=== PATIENT | female | born 1965 | race Caucasian/White ===

== ENCOUNTER → 2017-06-27 | Outpatient (CLI) | payer BC ==
[~2017-06-27] MED LIST: ACET1TAB84 PO; ALBU1AER9 INH; MUCINEX; SYMIN/8045 INH
--- NOTE | 2017-06-27 14:36 | DIAGNOSTIC IMAGING REPORT ---
R HAND MIN 3 VIEWS ROUTINE CLINICAL HISTORY: 51 years-old Female presenting with PAIN IN RIGHT HAND, fourth finger pain. TECHNIQUE: Frontal, oblique, and lateral views of the right hand were obtained. COMPARISON: None. FINDINGS: Avulsion fracture fragment at the dorsal base of the middle phalanx of the fourth finger. The fracture fragment is displaced 2 to 3 mm from the donor site. No evidence of a boutonniere deformity. No malalignment at the proximal interphalangeal joint. No other fracture is evident. No significant soft tissue abnormality. IMPRESSION: Avulsion fracture at the dorsal base of the middle phalanx of the fourth finger, which suggests injury of the middle slip the extensor tendon. Electronically signed by: Gilberto Marin M.D. 06/27/2017 2:35 PM Dictated Date/Time: 06/27/2017 2:29 PM
== END | disposition home or self-care (01) ==
LOC: C.RADBC 13:57
PROVIDERS: ATTEND Family Medicine
DX: M79.641 Pain in right hand (principal)

== ENCOUNTER → 2017-07-02 | Outpatient (CLI) | payer BC ==
--- NOTE | 2017-07-02 15:01 | MAMMOGRAPHY REPORT ---
BILATERAL DIGITAL SCREENING MAMMOGRAM TOMOSYNTHESIS WITH CAD: 07/02/2017 CLINICAL HISTORY: Routine screening. Patient has no complaints. TECHNIQUE: Breast tomosynthesis in addition to standard 2D mammography was performed. Current study was also evaluated with a Computer Aided Detection (CAD) system. COMPARISON: Comparison is made to exams dated: 07/08/2015 mammogram, 06/29/2016 mammogram, 06/23/2015 mammogram, 06/23/2014 ultrasound, 06/23/2014 mammogram, and 06/11/2014 mammogram - [facility]. BREAST COMPOSITION: There are scattered areas of fibroglandular density in both breasts. FINDINGS: There is a possible area of architectural distortion in the superior posterior right breas t, projecting over the pectoralis muscle on the MLO view (right MLO tomosynthesis slices 1819/110), bthought to project laterally based on the tomosynthesis localizer bar. Additional spot compression tomosynthesis, exaggerated lateral CC tomosynthesis views and possible ultrasound are recommended. There is evidence of prior surgery in both breasts. Stable asymmetries in the medial aspect of each breast likely related to prior surgery. No other suspicious mass, architectural distortion or cluste r of microcalcifications is seen. IMPRESSION: ACR BI-RADS CATEGORY 0: INCOMPLETE EVALUATION: NEED ADDITIONAL IMAGING EVALUATION The possible area of architectural distortion in the superior posterior right breast needs additional evaluation. The patient will be called to schedule an appointment. Approximately 10% of breast cancers are not detected with mammography. A negative mammographic report should not delay biopsy if a clinically suggestive mass is present. Alyssa Crenshaw M.D. ay/:07/02/2017 08:40:16 Commodities Broker: Sarah OLIVERAR, M, [facility] letter sent: Addl Imaging 0 BI-RADS Code: ACR BI-RADS Category 0: Incomplete Evaluation: Need Additional Imaging Evaluation
== END | disposition home or self-care (01) ==
LOC: C.MAMM 08:12
PROVIDERS: ATTEND Obstetrics & Gynecology
DX: Z12.31 Encounter for screening mammogram for malignant neoplasm of breast (principal); R92.8 Other abnormal and inconclusive findings on diagnostic imaging of breast

== ENCOUNTER → 2017-07-06 | Outpatient (CLI) | payer BC ==
--- NOTE | 2017-07-06 15:38 | MAMMOGRAPHY REPORT ---
UNILATERAL RIGHT DIGITAL DIAGNOSTIC MAMMOGRAM TOMOSYNTHESIS: 07/06/2017 CLINICAL HISTORY: Callback from screening mammogram for possible right breast architectural distortio n. TECHNIQUE: Breast tomosynthesis in addition to standard 2D mammography was performed. Spot compress ion right MLO 2-D and tomosynthesis images and 2-D right X CCL view were obtained. COMPARISON: Comparison is made to exams dated: 07/02/2017 mammogram, 06/29/2016 mammogram, 5 mammogram, 06/23/2015 mammogram, 06/23/2014 ultrasound, and 06/23/2014 mammogram - [facility]. BREAST COMPOSITION: There are scattered areas of fibroglandular density in the right breast. FINDINGS: The previously described possible area of architectural distortion seen within the right s uperior posterior breast on the MLO view does not persist on the additional spot compression view. A normal branching vessel is seen in this region, without evidence of a suspicious mass or other suspi cious abnormality seen in this region on the additional images. IMPRESSION: ACR BI-RADS CATEGORY 2: BENIGN The possible right breast architectural distortion does not persist on the additional images. Findin gs are benign and compatible with normal fibroglandular tissue/normal vessels. There is no mammograp hic evidence of malignancy. A 1 year screening mammogram is recommended. The patient has been verbal ly notified of the results. Approximately 10% of breast cancers are not detected with mammography. A negative mammographic report should not delay biopsy if a clinically suggestive mass is present. Indy Gardner M.D. ah/:07/06/2017 13:40:41 Systems Design Engineer: Ora OLIVERA(Sofie)(M), [facility] letter sent: Normal 1/2 BI-RADS Code: ACR BI-RADS Category 2: Benign
== END | disposition home or self-care (01) ==
LOC: C.MAMM 13:15
PROVIDERS: ATTEND Obstetrics & Gynecology
DX: R92.8 Other abnormal and inconclusive findings on diagnostic imaging of breast (principal)

== ENCOUNTER → 2017-08-08 | Outpatient (CLI) | payer BC ==
--- NOTE | 2017-08-08 13:51 | DIAGNOSTIC IMAGING REPORT ---
R ANKLE MIN 3 VIEWS ROUTINE, R FOOT MIN 3 VIEWS ROUTINE HISTORY: 51 years-old Female RIGHT ANKLE PAIN, LAC OF SKIN OF KNEE acute right ankle and right foot pain COMPARISON: None available TECHNIQUE: 3 views of the right foot and 3 views of the right ankle FINDINGS: ANKLE: Acute nondisplaced transverse fracture of the distal fibula is noted at the level of the talar dome. Moderate anterolateral soft tissue swelling. Additionally, there is a small bone fragment measuring 5 mm adjacent to lateral aspect of the anterior process calcaneus seen only on the AP view. Small joint effusion. Moderate plantar calcaneal spur. FOOT: 3 mm bone fragment is noted adjacent to lateral aspect of the anterior calcaneal process suggesting acute avulsion fracture with moderate soft tissue swelling. No additional acute fracture or dislocation. Moderate plantar calcaneal spur. IMPRESSION: 1. Acute nondisplaced transverse fracture of the distal fibula which is at the level of the ankle mortise. 2. Acute avulsion fracture involves the lateral aspect of the anterior process calcaneus. 3. Moderate anterolateral soft tissue swelling with small joint effusion. The above report was generated using voice recognition software. It may contain grammatical, syntax or spelling errors. Electronically signed by: Anup Chaparro M.D. 08/08/2017 1:49 PM Dictated Date/Time: 08/08/2017 1:46 PM
== END | disposition home or self-care (01) ==
LOC: C.RAD 13:17
PROVIDERS: ATTEND Nurse Practitioner
DX: M25.571 Pain in right ankle and joints of right foot (principal); M79.671 Pain in right foot; S81.019A Laceration without foreign body, unspecified knee, initial encounter; X58.XXXA Exposure to other specified factors, initial encounter

== ENCOUNTER → 2017-08-22 | Outpatient (CLI) | payer BC, OTHER | END | disposition home or self-care (01) | LOC: C.RDSM 10:30 | PROVIDERS: ATTEND Orthopaedic Surgery Sports Medicine | DX: Z09 Encounter for follow-up examination after completed treatment for conditions other than malignant neoplasm (principal) ==

== ENCOUNTER → 2017-09-05 | Outpatient (CLI) | payer OTHER | END | disposition home or self-care (01) | LOC: C.RDSM 10:40 | PROVIDERS: ATTEND Orthopaedic Surgery Sports Medicine | DX: Z09 Encounter for follow-up examination after completed treatment for conditions other than malignant neoplasm (principal) ==

== ENCOUNTER → 2017-10-03 | Outpatient (CLI) | payer OTHER | END | disposition home or self-care (01) | LOC: C.RDSM 16:13 | PROVIDERS: ATTEND Orthopaedic Surgery Sports Medicine | DX: S82.821D Torus fracture of lower end of right fibula, subsequent encounter for fracture with routine healing (principal); X58.XXXD Exposure to other specified factors, subsequent encounter ==

== ENCOUNTER → 2017-12-06 | Outpatient (CLI) | payer OTHER | END | disposition home or self-care (01) | LOC: C.RDSM 08:10 | PROVIDERS: ATTEND Orthopaedic Surgery Sports Medicine | DX: S82.821D Torus fracture of lower end of right fibula, subsequent encounter for fracture with routine healing (principal); X58.XXXD Exposure to other specified factors, subsequent encounter ==

== ENCOUNTER 2021-03-16 05:56 | Observation (INO) ==
--- NOTE | 2021-03-11 09:14 | Anesthesiology Consultation ---
Date of Service March 11, 2021 Assessment & Plan (1) Encounter for pre-operative examination: - COVID screening: Per assessment on 03/10: Travel screen negative, no known COVID-19 positive contacts or current COVID-19 related symptoms. Patient vaccinated. Surgeon arranging preop COVID testing. Awaiting results. - S/P Left distal radius ORIF (02/05/20): LMA#4, atraumatic at [facility] Chart Review Chart Review: Acceptable Risk for Surgery and Patient NOT seen in Pre Admission Testing History Surgery Operation Date: 03/16/21 07:30 Proposed Procedures p Bilateral Breast Reduction with Free Nipple Graft - Roma Beauchamp MD Height/Weight Height: 5 ft 7 in Weight: 97.069 kg Allergies Allergy/AdvReac Type Severity Reaction Status Date / Time coffee (Coffea arabica) AdvReac Intermediate Severe Verified 03/11/21 09:10 headache (with decaf only) indomethacin AdvReac Intermediate Headaches Verified 03/11/21 09:11 Medications Home Medications Medication Instructions Recorded Confirmed Last Taken cephalexin 500 mg capsule 500 mg PO TID 7 Days #21 cap 03/01/21 03/10/21 Unknown oxycodone-acetaminophen 5 mg-325 1 tab PO Q4H PRN 3 Days #18 tab 03/01/21 03/10/21 Unknown mg tablet (Percocet) budesonide 90 mcg/actuation breath 1 inh INHALATION BID PRN 03/10/21 03/10/21 Unknown activated powder inhaler (Pulmicort Flexhaler) levothyroxine 125 mcg capsule 125 mcg PO QAM 03/10/21 03/10/21 Unknown ondansetron HCl 4 mg tablet 4 mg PO Q6H PRN 03/10/21 03/10/21 Unknown (Zofran) Past Medical History Medical History GERD (gastroesophageal reflux disease) Controlled High cholesterol Diet controlled Hypothyroidism Seasonal allergies Past Family History Family History Father Hypertension Mother Thyroid disorder Other Cancer Dementia Depression Heart disease Nephrolithiasis Denies family history of Prostate cancer Past Surgical History Surgical History Blocked tear duct Closed fracture of left distal radius and ulna Left distal radius ORIF (02/05/20): LMA#4, atraumatic at [facility] H/O bladder repair surgery History of colonoscopy History of gynecologic surgery Hymenectomy History of robot-assisted laparoscopic hysterectomy (2012) Hx of breast reduction, elective Nausea and vomiting after administration of anesthetic agent Astor teeth removed Social History Smoking Status: Never smoker Do You Dip or Chew Tobacco: No Hx Alcohol Use: Yes Alcohol type: beer, wine and hard liquor alcohol intake frequency: 0-2 drinks per day Alcohol Intake Frequency Comment: 1 X A WEEK Hx Substance Use: Yes substance use type: prescription drug Lab Results Anesthesia Preop Results Results Anesthesia Widget: WBC 5.78 K/uL (4.8-10.8) 03/04/21 Hgb 14.1 g/dL (12.0-16.0) 03/04/21 Hct 42.9 % (37-47) 03/04/21 Plt 196 K/uL (130-400) 03/04/21 Na 142 mmol/L (136-145) 03/04/21 K 3.6 mmol/L (3.5-5.1) 03/04/21 Cl 109 mmol/L (98-107) H 03/04/21 CO2 30 mmol/L (21-32) 03/04/21 BUN 12 mg/dl (7-18) 03/04/21 Creat 0.67 mg/dl (0.6-1.2) 03/04/21 Glucose Level 80 mg/dl (70-99) 03/04/21 PT 10.3 Seconds (9.0-12.0) 03/04/21 PTT 26.8 Seconds (21.0-31.0) 03/04/21 INR 1.0 (0.9-1.1) 03/04/21 Testing Electrocardiogram Date: 03/04/21 NSR at 77bpm. Low voltage QRS. No significant change compard to 02/02/20 per pediatric psychiatrist review.
[2021-03-16] MEDS ORDERED: ceFAZolin 2000MG 2,000 MG/15 ML SYR IV SCH (06:00)
[2021-03-16] MEDS ORDERED: LR 15ML/HR IV SCH (06:00)
[2021-03-16] MEDS ORDERED: LIDOCAINE/EPINEPHRINE 1% 20 ML VIAL ONE (07:01)
[2021-03-16] MEDS ORDERED: BUPIVACAINE 0.25% 30 ML VIAL ONE (07:01)
--- NOTE | 2021-03-16 07:05 | History & Physical Bridge Note ---
Date of Service March 16, 2021 History & Physical Bridge Note I have examined the patient, reviewed the History & Physical and in the interval since the performance of the History & Physical I have noted the following changes of clinical significance: no changes noted
[2021-03-16] MEDS ORDERED: LIDOCAINE 2% 2 ML VIAL/AMP(20MG/ML) INFIL ONE (07:06)
[2021-03-16] MEDS ORDERED: ROCURONIUM BROMIDE 10 MG/ML 5 ML VIAL IV ONE (07:06)
[2021-03-16] MEDS ORDERED: GLYCOPYRROLATE 0.2 MG/ML VIAL ONE (07:06)
[2021-03-16] MEDS ORDERED: PROPOFOL IV EMULSION 10 MG/ML 20 ML VIAL IV ONE (07:06)
[2021-03-16] MEDS ORDERED: ONDANSETRON INJ 2 MG/ML 2 ML VIAL ONE ×2 (07:06→08:34)
[2021-03-16] MEDS ORDERED: fentaNYL citrate 100 MCG/2 ML VIAL ONE ×3 (07:06→09:32)
[2021-03-16] MEDS ORDERED: LARYING-O-JET KIT (LTA) ONE (07:06)
[2021-03-16] MEDS ORDERED: MIDAZOLAM HCL 1 MG/ML 2ML VIAL ONE (07:06)
[2021-03-16] MEDS ORDERED: PROMETHAZINE HCL 6.25 MG in SODIUM CHLORIDE 0.9% 50 ML IV PRN (07:49)
[2021-03-16] MEDS ORDERED: ATROPINE SULFATE 0.1 MG/ML 10ML SYR IV PRN (07:49)
[2021-03-16] MEDS ORDERED: ePHEDrine sulfate 50 MG/ML AMP IV PRN (07:49)
[2021-03-16] MEDS ORDERED: ONDANSETRON INJ 2 MG/ML 2 ML VIAL IV PRN (07:49)
[2021-03-16] MEDS ORDERED: ACETAMINOPHEN 1000 MG/100 ML IV IV ONE (08:33)
--- NOTE | 2021-03-16 11:14 | Post Operative Brief Note ---
PG Immediate Post Op with CF Date of Surgery March 16, 2021 Pre & Post Diagnosis Operation Date: 03/16/21 07:30 Pre-Op Diagnosis: Symptomatic Bilateral Macromastia Post-Op Diagnosis: Symptomatic Bilateral Macromastia I identified the patient and participated in the time-out.: Yes Procedure Operation Date: 03/16/21 07:30 Actual Procedures p Bilateral Breast Reduction with Free Nipple Graft(Bilateral) - Roma Beauchamp MD Surgeon Roma Beauchamp MD Pipe Smoking Machine Operator Lindsay Lancaster PA-C Estimated Blood Loss 50 Findings Consistent with Post-Op Diagnosis none Specimens Specimen Description: Fresh Specimen: A.) Left Breast Tissue out of body at 0845 weight = 836 grams-Please weigh specimen sent out of OR9 at 0926 B) Right Breast Tissue out of body at 1021 weight = 856 grams-Please weigh specimen sent out of OR9 at 1042 Drains Other (15 cay[place] islander round channel drain) Complications none
[2021-03-16] MEDS: fentaNYL citrate 100 MCG/2 ML VIAL IV PRN ×2 (11:37→11:42)
--- NOTE | 2021-03-16 11:55 | Anesthesiology Progress Note ---
Date of Service March 16, 2021 Anesthesia Post Procedure Vital Signs Vital Signs: Temp Pulse Pulse Resp BP BP Pulse Ox 03/16/21 11:45 72 14 128/81 99 03/16/21 11:35 75 16 141/77 H 100 03/16/21 11:26 36.4 C L 83 24 138/86 98 03/16/21 06:15 37.1 C 81 18 117/68 95 Pain Intensity Bilateral Breast: Pain Intensity: 7 Transfer of Care Handoff Completed per policy Notes Mental Status: alert / awake / arousable Patient Amnestic to Procedure: Yes Nausea / Vomiting: adequately controlled Pain: adequately controlled Airway Patency, RR, SpO2: stable & adequate BP & HR: stable & adequate Hydration State: stable & adequate Anesthetic Complications: no major complications apparent
--- NOTE | 2021-03-16 12:04 | Operative Report ---
PG Post Operative Report Pre & Post Diagnosis Operation Date: 03/16/21 07:30 Pre-Op Diagnosis: Symptomatic Bilateral Macromastia Post-Op Diagnosis: Symptomatic Bilateral Macromastia I identified the patient and participated in the time-out.: Yes Procedure Operation Date: 03/16/21 07:30 Actual Procedures p Bilateral Breast Reduction with Free Nipple Graft(Bilateral) - Roma Beauchamp MD Surgeon Roma Beauchamp MD Pneumatic Tube Repairer Lindsay Lancaster PA-C Estimated Blood Loss 50 Findings Consistent with Post-Op Diagnosis Specimens left breast 836 grams, right breast 856 grams Drains JPx2 Complications none Indications back, neck and shoulder pain; recurrent macromastia Description of Procedure The risks, benefits and alternatives of the procedure were explained to the patient who agreed and signed consent. She was identified and marked in the preoperative holding area. She was brought to the operating room where she was positioned supine and placed under general anesthesia without incident. Surgical site markings were again reassessed. I began with the left breast. 1% lidocaine with epinephrine was used to anesthetize the planned incisions as well as the nipple areolar complex. A breast tourniquet was applied using the Katie clamp and lap sponge. A 38 mm cookie cutter was used to circumscribe the nipple-areolar complex. The nipple-areolar complex was then removed as a full thickness graft and placed on the back table in saline soaked sponge. At this point, tourniquet was released and the inframammary fold incision was made using 15 blade scalpel. Electrocautery was used to deepen the incision through subcutaneous fat and breast parenchyma down to chest wall. Care was taken to perform this in a bevelled direction ligating vessels as needed and achieving hemostasis with electrocautery. Once the breast was mostly undermined, the superior incision was then made to the inferior aspect of the keyhole incision. This was performed using a 15 blade scalpel. Incision was then deepened using electrocautery again full thickness through the breast. A similar incision was made laterally. Centrally, the skin was incised using electrocautery and additional breast parenchyma was resected again in a beveled fashion in order to retain some projection of the breast. Tissue was passed off for weighing. Additional resection was performed until we achieved the desired size and the wound was able to be closed with minimal tension. Total resection weight on the left was 836 grams. Hemostasis was achieved with electrocautery 0.25% Marcaine plain was used to anesthetize the incisions as well as pectoralis fascia. A 15 Estonian Gerson drain was brought out through a separate stab incision laterally toward the axilla. The keyhole was then incised using 15 blade scalpel and deepithelialized. T-junction was brought together using 2-0 Vicryl suture. Closure was begun first lateral to medial using 2-0 Vicryl deep dermal sutures and then medial to lateral using 2-0 Vicryl deep dermal sutures. Vertical limb was closed using a combination of 2-0 Vicryl deep dermal sutures and a 3-0 PDS interrupted dermal sutures. The inframammary fold incision was closed using 2-0 PDO deep dermal running Quill suture. The vertical limb was then closed using 3-0 Monocryl running subcuticular suture. Nipple areolar complex was inspected and thinned using a curved iris scissor. It was placed in the recipient bed and sutured into place using 4-0 silk tie over bolster sutures and 4-0 chromic interrupted sutures. A similar procedure was undertaken on the right side. Total resection weight was 856 grams on the right. There was reasonable symmetry at the close of the case. No complications. Dermabond Prineo was applied to the incisions. Dry dressing followed by a surgical bra were placed. The patient was awakened and transferred to the recovery room in satisfactory condition. Lindsay Lancaster PA-C was present and scrubbed throughout the entire procedure and was instrumental in providing retraction, preparing the nipple graft and assisting in simultaneous wound closure. I attest to the content of the Intraoperative Record and any orders documented therein. Any exceptions are noted below.
[2021-03-16] MEDS ORDERED: LORazepam 0.5 MG TAB PO PRN (12:26)
[2021-03-16] MEDS ORDERED: diphenhydrAMINE Capsule 25 MG CAP PO PRN (12:26)
[2021-03-16] MEDS ORDERED: MoRPHine SULFATE 4 MG/ML 1 ML CARP\\VIAL IV PRN (12:26)
[2021-03-16] MEDS ORDERED: oxyCODONE/ACETAMINOPHEN 5mg/325mg TAB PO PRN (12:26)
[2021-03-16] MEDS ORDERED: diphenhydrAMINE 50 MG/ML VIAL IV PRN (12:26)
[2021-03-16] MEDS ORDERED: MoRPHine SULFATE 2 MG/ML CARP IV PRN (12:26)
[2021-03-16] MEDS ORDERED: FLUTICASONE FUROATE 100MCG 14 PUFFS/INHALER INH PRN (12:51)
[2021-03-16] MEDS ORDERED: ONDANSETRON 4 MG OD TAB PO PRN (12:52)
[2021-03-16] MEDS: D5W AND 1/2NSS + 20MEQ KCL 20 MEQ/1,000 ML BAG IV SCH (13:33)
[2021-03-16] MEDS: oxyCODONE/ACETAMINOPHEN 5mg/325mg TAB PO PRN ×2 (13:43→19:43)
[2021-03-16] MEDS ORDERED: METOCLOPRAMIDE HCL INJ 5 MG/ML 2 ML VIAL ONE (13:56)
--- NOTE | 2021-03-16 16:12 | Surgery Progress Note ---
Date of Service March 16, 2021 Assessment & Plan (1) Breast hypertrophy in female: Plan: s/p bilateral breast reduction 1. Doing well. Anticipate d/c in AM Admission and Anticipated Discharge Date Admission Date: March 16, 2021 Subjective Patient resting comfortably in bed. VSS. Pain well controlled. Physical Exam Physical Exam: drains with appropriate output- serosang. incision CDI, no drainage on gauze. no concerns for hematoma Results & Data ([facility]) Vital Signs (Past 12 Hours) Vital Signs Temp Pulse Pulse Resp BP BP Pulse Ox 03/16/21 15:50 72 18 107/71 94 03/16/21 14:30 36.6 C 84 16 121/77 96 03/16/21 14:00 84 18 111/80 97 03/16/21 13:30 76 16 102/84 95 03/16/21 13:00 86 16 111/94 97 03/16/21 12:45 78 14 117/74 94 03/16/21 12:30 78 14 126/72 94 03/16/21 12:15 74 13 127/75 94 03/16/21 12:05 36.4 C L 83 14 144/78 H 94 03/16/21 11:55 71 12 129/81 97 03/16/21 11:45 72 14 128/81 99 03/16/21 11:35 75 16 141/77 H 100 03/16/21 11:26 36.4 C L 83 24 138/86 98 03/16/21 06:15 37.1 C 81 18 117/68 95 PG Care Time/CCT Total # of Minutes Spent Total Time Spent with Patient: Total time spent is greater than 50% in coordination of care (as documented) at patient's floor/unit and/or counseling patient: Coding Level of Care Code None Diagnoses Breast hypertrophy in female N62
[2021-03-16] MEDS: ceFAZolin 2000MG 2,000 MG/15 ML SYR IV SCH ×2 (16:28→22:40)
[2021-03-16] MEDS: ACETAMINOPHEN 325 MG TAB PO PRN (22:40)
[2021-03-17] MEDS: D5W AND 1/2NSS + 20MEQ KCL 20 MEQ/1,000 ML BAG IV SCH (02:42)
[2021-03-17] MEDS: ACETAMINOPHEN 325 MG TAB PO PRN (05:20)
[2021-03-17] MEDS ORDERED: LEVOTHYROXINE SODIUM 125 MCG TABLET PO SCH (06:30)
--- NOTE | 2021-03-17 08:27 | Surgery Progress Note ---
Date of Service March 17, 2021 Assessment & Plan (1) S/P bilateral breast reduction: Plan: s/p bilateral breast reduction POD#1 1. drains removed 2. d/c home today, office follow-up tomorow 3. post-op instructions reviewed with the patient Admission and Anticipated Discharge Date Admission Date: March 16, 2021 Subjective Patient resting comfortably in bed. VSS. Pain well controlled. No issue overnight. Patient is anxious to go home. Physical Exam Physical Exam: drains with appropriate output- serosang. incision CDI, no drainage on gauze. no concerns for hematoma. drains removed Results & Data ([facility]) Vital Signs (Past 12 Hours) Vital Signs Temp Pulse Resp BP BP Pulse Ox 03/17/21 07:24 36.7 C 79 16 103/68 97 03/17/21 03:35 36.9 C 78 12 103/67 94 03/16/21 22:31 36.6 C 71 18 97/66 L 96 PG Care Time/CCT Total # of Minutes Spent Total Time Spent with Patient: Total time spent is greater than 50% in coordination of care (as documented) at patient's floor/unit and/or counseling patient: Coding Level of Care Code None Diagnoses S/P bilateral breast reduction Z98.890
[2021-03-17] MEDS ORDERED: MULTIVITAMIN TAB PO SCH (09:00)
--- NOTE | 2021-03-18 08:51 | Discharge Summary ---
Date of Service March 18, 2021 Admission HPI Per Admitting Provider see admission H&P Admission Exam Per Admitting Provider see admission H&P Principal Diagnosis symptomatic macromastia Discharge Exam bolsters intact, no drainage on gauze dressings. VSS. Discharge Data Allergies Allergy/AdvReac Type Severity Reaction Status Date / Time coffee (Coffea arabica) AdvReac Intermediate Severe Verified 03/16/21 06:20 headache (with decaf only) indomethacin AdvReac Intermediate Headaches Verified 03/16/21 06:20 Procedures Performed Operation Date: 03/16/21 07:30 Actual Procedures p Bilateral Breast Reduction with Free Nipple Graft(Bilateral) - Roma Beauchamp MD Hospital Course (1) S/P bilateral breast reduction: Patient presented to [facility] with history of symptomatic macromastia. She was taken to the OR and underwent bilateral breast reduction. There were no intraoperative complications. She was taken to recovery and transferred to med/surg for observation. On POD#1, she was feeling well. She was tolerating a regular diet and ambulating. On exam, her vitals were stable. Her incisions were CDI and nipple bolsters in place. Her drains were removed. She was discharged home with instructions to follow-up in the office in one day. Total Time Total Time Spent Total Time Spent (In Minutes): 20 Total Time Includes: Examination of the Patient, Discharge Planning, Medication Reconciliation and Communication With Other Providers Discharge Plan Discharge Items Patient Disposition: Home - Self-Care Reason For Visit: Symptomatic Macromastia Discharge Diagnosis: s/p bilateral breast reduction Activity: As commented below Non-emergency contact: Surgeon Call non-emergency contact if: you have any medication questions, your pain is concerning for you, you have a fever, your wound has increased redness and your wound has increased drainage Follow-up/Referrals: Lindsay Lancaster PA-C [Physician Certified Alcohol Drug Counselor] - 03/18/21 9:00 am Jorgito Kiran [Primary Care Provider] - Diet: Regular Addtl Attending Provider Instructions: ACTIVITY RECOMMENDATIONS: __Normal activities _x_No bending, lifting or straining. Keep arms at shoulder height or below __No driving __Driving allowed when you are off pain medications _x_Walking permitted __You should have help at home for ___ days DRESSINGS: __No dressings required _x_Keep dressings dry/in place until first office visit __Remove dressings ___ and leave dressings off __Apply ice ___ days __Remove dressings and reapply garment __Apply antibiotic ointment (Bacitracin, Neosporin, etc) to wounds 3-4 times/day for 10 days BATHING: _x_Keep dressings dry _x_Sponge bathing permitted away from breasts __Showering permitted x_No swimming, hot tubs or soaking in a tub MEDICATIONS: Resume previous medications unless instructed otherwise by your surgeon. _x_Do not use aspirin, Motrin, Advil or Ibuprofen as these may promote bleeding. Please use Tylenol. _x_Prescription(s) provided: pain medication and antibiotics were prescribed at your last office visit- begin antibiotics today OTHER INSTRUCTIONS: __Record drain output 2-3 times per day SPECIAL CARE INSTRUCTIONS: * It is normal to have a mild fever after surgery. If your temperature is higher than 101.5 degrees F, please call the office at [phone]. * Constipation is a typical side effect of pain medication. An [id number]-sstchga stool softener will help relieve this. * Leaking around surgical drains may occur and should not cause concern. Sometimes these drains become clogged. If this happens, remove the bulb and milk the clot out of the tube, then replace the bulb. * Drainage from wounds after liposuction is normal and should be expected. Garments will become soiled. You should protect furniture and bedding. This drainage should mostly subside within 2-3 days. Leave garments in place unless instructed to remove them. * If you have unusual drainage from a wound or are concerned you have an infection or have any questions or concerns, please call the office at [phone]. FOLLOW UP VISIT: If not already scheduled, please call the office, , when you return home after surgery to schedule an appointment to be seen in __1_ days. Pending Studies at Discharge: Yes Stand-Alone Forms: My [facility], Smoking Cessation Medications and DC Order Prescriptions: Continued oxycodone-acetaminophen [Percocet] 5-325 mg tablet 1 tab PO Q4H PRN (Reason: pain) 3 Days Qty: 18 RF: 0 cephalexin 500 mg capsule 500 mg PO TID 7 Days Qty: 21 RF: 0 levothyroxine 125 mcg Capsule 125 mcg PO QAM RF: 0 Pulmicort Flexhaler 90 mcg/actuation Aerosol Powdr Breath Activated 1 inh INHALATION BID PRN (Reason: Wheezing) RF: 0 ondansetron HCl [Zofran] 4 mg Tablet 4 mg PO Q6H PRN (Reason: Nausea) RF: 0 Discharge Orders: Discharge Order (Routine); Ordered 03/17/21 Ordered By: Lindsay Genao/Other Patient Handouts: DVT Post Op Prevention Admission Data Admit Date/Time: 03/16/21 11:31 Attending Provider: Roma Beauchamp Admit Provider: Lindsay Lancaster Primary Care Provider: Jorgito Kiran Other Interventions: Discharge Summary Assessment (RN) Last Done: 03/17/21 09:05 Coding Level of Care Code 82171 OBS Care - Discharge Diagnoses S/P bilateral breast reduction Z98.890
== END 2021-03-17 10:03 | disposition home or self-care (01) ==
LOC: ASU 05:56 → PACUINP 05:56 → 3E 11:35